=== PATIENT | male | born 1970 | race Two or more races ===

== ENCOUNTER 2018-12-18 10:20 | Emergency (ER) | payer SELFPAY ==
[2018-12-18] MEDS ORDERED: IV NORMAL SALINE 1,000ML 1,000 ML IV SCH (10:35)
--- NOTE | 2018-12-18 10:54 | PHYS DOC ---
Past History Past Medical History: Other Past Surgical History: Other Alcohol Use: None Drug Use: None Adult General Chief Complaint Chief Complaint: ABDOMINAL PAIN HPI HPI Patient is a 48 year old male who presents with complaint of epigastric pain that started last night. Patient states that the pain is sharp and constant. The patient notes that he has had similar pain in the past and was diagnosed with a common bile duct blockage at that time. He states he underwent endoscopy which helped to treat the blockage at that time. This was done in his [facility]. States that he has had belching but no vomiting, fever, or diarrhea associated with symptoms. Rates pain currently 5 out of 10. Has not taken any medications for symptoms. Denies radiation of pain. Review of Systems Review of Systems Constitutional: Denies fever or chills [] Eyes: Denies change in visual acuity, redness, or eye pain [] HENT: Denies nasal congestion or sore throat [] Respiratory: Denies cough or shortness of breath [] Cardiovascular: Denies chest pain or edema[] GI: Abdominal pain, belching, denies vomiting or diarrhea[] : Denies dysuria or hematuria [] Musculoskeletal: Denies back pain or joint pain [] Integument: Denies rash or skin lesions [] Neurologic: Denies headache, focal weakness or sensory changes [] All other systems were reviewed and found to be within normal limits, except as documented in this note. Current Medications Current Medications Current Medications Medications (Trade) Dose Ordered Sig/Dionisio Start Time Stop Time Status Last Admin Dose Admin Famotidine (Pepcid Vial) 20 mg 1X ONCE 12/18/18 11:00 12/18/18 11:01 12/18/18 10:50 20 MG Fentanyl Citrate (Fentanyl 2ml Vial) 50 mcg PRN Q15MIN PRN 12/18/18 11:00 12/19/18 10:59 12/18/18 10:50 50 MCG Ondansetron HCl (Zofran) 4 mg 1X ONCE 12/18/18 11:00 12/18/18 11:01 12/18/18 10:50 4 MG Sodium Chloride 1,000 ml @ 1,000 mls/hr Q1H 12/18/18 10:35 12/18/18 11:34 12/18/18 10:49 1,000 MLS/HR Allergies Allergies Allergies Coded Allergies Type Severity Reaction Last Updated Verified No Known Drug Allergies 12/18/18 No Physical Exam Physical Exam Constitutional: Alert, afebrile, no acute distress. [] HENT: Normocephalic, atraumatic, bilateral external ears normal, oropharynx moist, no oral exudates, nose normal. [] Eyes: PERRLA, EOMI, conjunctiva normal, no discharge. [] Neck: Normal range of motion, no tenderness, supple, no stridor. [] Cardiovascular:Heart rate regular rhythm, no murmur [] Lungs & Thorax: Bilateral breath sounds clear to auscultation [] Abdomen: Bowel sounds normal, soft, no tenderness, no masses, no pulsatile masses. [] Skin: Warm, dry, no erythema, no rash. [] Back: No tenderness, no CVA tenderness. [] Extremities: No tenderness, no cyanosis, no clubbing, ROM intact, no edema. [] Neurologic: Alert and oriented X 3, normal motor function, normal sensory function, no focal deficits noted. [] Current Patient Data Vital Signs Vital Signs Date Time Temp Pulse Resp B/P (MAP) Pulse Ox O2 Delivery O2 Flow Rate FiO2 12/18/18 10:50 18 98 Room Air 12/18/18 10:26 98.2 76 Lab Results Laboratory Tests Test 12/18/18 10:47 12/18/18 10:54 White Blood Count 9.7 x10^3/uL Red Blood Count 5.89 x10^6/uL Hemoglobin 17.2 g/dL Hematocrit 49.9 % Mean Corpuscular Volume 85 fL Mean Corpuscular Hemoglobin 29 pg Mean Corpuscular Hemoglobin Concent 35 g/dL Red Cell Distribution Width 13.2 % Platelet Count 260 x10^3/uL Neutrophils (%) (Auto) 60 % Lymphocytes (%) (Auto) 33 % Monocytes (%) (Auto) 6 % Eosinophils (%) (Auto) 1 % Basophils (%) (Auto) 1 % Neutrophils # (Auto) 5.8 x10^3uL Lymphocytes # (Auto) 3.2 x10^3/uL Monocytes # (Auto) 0.6 x10^3/uL Eosinophils # (Auto) 0.1 x10^3/uL Basophils # (Auto) 0.1 x10^3/uL Sodium Level 140 mmol/L Potassium Level 3.9 mmol/L Chloride Level 102 mmol/L Carbon Dioxide Level 29 mmol/L Anion Gap 9 Blood Urea Nitrogen 11 mg/dL Creatinine 1.2 mg/dL Estimated GFR (Cockcroft-Gault) 65.2 BUN/Creatinine Ratio 9 Glucose Level 92 mg/dL Calcium Level 8.6 mg/dL Total Bilirubin 0.6 mg/dL Aspartate Amino Transf (AST/SGOT) 29 U/L Alanine Aminotransferase (ALT/SGPT) 47 U/L Alkaline Phosphatase 78 U/L Total Protein 7.9 g/dL Albumin 4.0 g/dL Albumin/Globulin Ratio 1.0 Lipase < 10 U/L Urine Collection Type Unknown Urine Color Yellow Urine Clarity Clear Urine pH 5.5 Urine Specific [place] 1.020 Urine Protein Neg Urine Glucose (UA) Neg mg/dL Urine Ketones (Stick) Neg mg/dL Urine Blood Neg Urine Nitrite Neg Urine Bilirubin Neg Urine Urobilinogen Dipstick 0.2 mg/dL Urine Leukocyte Esterase Neg Urine RBC 0 /HPF Urine WBC 0 /HPF Urine Squamous Epithelial Cells None /LPF Urine Bacteria 0 /HPF Urine Mucus Slight /LPF Current Medications Medications (Trade) Dose Ordered Sig/Dionisio Route PRN Reason Start Time Stop Time Status Last Admin Dose Admin Fentanyl Citrate (Fentanyl 2ml Vial) 50 mcg PRN Q15MIN PRN IV PAIN GREATER THAN 3/10 12/18/18 11:00 12/19/18 10:59 12/18/18 10:50 Sodium Chloride 1,000 ml @ 1,000 mls/hr Q1H IV 12/18/18 10:35 12/18/18 11:35 DC 12/18/18 10:49 Ondansetron HCl (Zofran) 4 mg 1X ONCE IV 12/18/18 11:00 12/18/18 11:02 DC 12/18/18 10:50 Famotidine (Pepcid Vial) 20 mg 1X ONCE IVP 12/18/18 11:00 12/18/18 11:02 DC 12/18/18 10:50 EKG EKG Interpreted by me: Heart rate 81, sinus rhythm, J-point elevation in the precordial leads, no true ST elevations or depressions[] Radiology/Procedures Radiology/Procedures [address] [address] IMAGING REPORT Signed PATIENT: AVRIL SINGH ACCOUNT: [id number] : 1970 LOCATION: ER AGE: 48 SEX: M EXAM STATUS: PRE ER ORD. PHYSICIAN: EMILY AUGUSTIN MD REASON: epigastric pain, hx of common bile duct blockage 1.5 years ago PROCEDURE: ABDOMEN LTD Right upper quadrant abdominal ultrasound History: Epigastric pain. History of common bile duct blockage 1.5 years ago. Comparison: None. Technique: Transabdominal ultrasound images are obtained. Findings: Visualized pancreas is homogeneous. The pancreatic duct is mildly dilated measuring 3.6 mm. The liver is homogeneous, echogenicity is upper limits of normal. There is however no decreased through-transmission. Right hepatic lobe measures 14.4 cm. Portal flow is hepatopedal. Gallbladder sludge and tiny gallstones are suggested. There is no gallbladder wall thickening or pericholecystic fluid. Sonographic Zamora sign is negative. Common bile duct caliber is normal measuring 4 mm in diameter. The right kidney measures 11.4 cm in length and is without evidence of obstruction or stone. IVC is patent. IMPRESSION: 1. Gallbladder sludge. 2. The pancreatic duct is mildly dilated. Common bile duct is normal caliber. Electronically signed by: Harry Ruvalcaba MD (12/18/2018 11:50 AM) [id number] DICTATED AND SIGNED BY: HARRY RUVALCABA MD DATE: 12/18/18 1150 CC: EMILY AUGUSTIN MD ~ [] Course & Med Decision Making Course & Med Decision Making Pertinent Labs and Imaging studies reviewed. (See chart for details) Patient was given IV fluids, fentanyl, Pepcid, and Zofran in the emergency department. Reports improvement in pain symptoms. Ultrasound is negative. Patient's symptoms appear consistent with likely gastritis. We'll start patient on Carafate and Pepcid for treatment. Advised follow-up with primary doctor in 1 week for reevaluation and return to emergency department for any worsening symptoms. Patient was understanding and in agreement with treatment plan. Dragon Disclaimer Dragon Disclaimer This electronic medical record was generated, in whole or in part, using a voice recognition dictation system. Departure Departure: Impression: Primary Impression: Epigastric abdominal pain Disposition: 01 HOME, SELF-CARE Condition: IMPROVED Patient Instructions: Abdominal Pain (Nonspecific) Additional Instructions: Follow-up with your primary doctor in 1 week for reevaluation. Return to the emergency department for any worsening symptoms. Scripts Famotidine (PEPCID) 20 Mg Tablet 1 TAB PO BID, #30 TAB 0 Refills Prov: EMILY AUGUSTIN MD 12/18/18 Sucralfate (CARAFATE) 1 Gm Tablet 1 TAB PO QID, #120 TAB 0 Refills Prov: EMILY AUGUSTIN MD 12/18/18 EMILY AUGUSTIN MD Dec 18, 2018 10:54
[2018-12-18 10:59] LABS: BASO # 0.1 x10^3/uL (0.0-0.2); BASO % 1 % (0-3); EOS # 0.1 x10^3/uL (0.0-0.7); EOS % 1 % (0-3); HEMATOCRIT 49.9 % (39.0-53.0); HEMOGLOBIN 17.2 g/dL (13.0-17.5); LYMPH # 3.2 x10^3/uL (1.0-4.8); LYMPH % 33 % (24-48); MEAN CORPUSCULAR HEMOGLOBIN 29 pg (25-35); MEAN CORPUSCULAR HGB CONC 35 g/dL (31-37); MEAN CORPUSCULAR VOLUME 85 fL (79-100); MONO # 0.6 x10^3/uL (0.0-1.1); MONO % 6 % (0-9); NEUT # 5.8 x10^3uL (1.8-7.7); NEUT % 60 % (31-73); PLATELET COUNT 260 x10^3/uL (140-400); RED BLOOD COUNT 5.89 x10^6/uL (4.30-5.70); RED CELL DISTRIBUTION WIDTH 13.2 % (11.5-14.5); WHITE BLOOD COUNT 9.7 x10^3/uL (4.0-11.0)
[2018-12-18] MEDS ORDERED: ONDANSETRON PF 4 MG/2 ML VIAL. IV ONE (11:00)
[2018-12-18] MEDS ORDERED: FAMOTIDINE 20 MG/2 ML VIAL IVP ONE (11:00)
[2018-12-18 11:13] LABS: ALT (SGPT) 47 U/L (16-63); ANION GAP 9 (6-14); AST (SGOT) 29 U/L (15-37); BLOOD UREA NITROGEN 11 mg/dL (8-26); BUN/CREATININE RATIO 9 (6-20); CALCIUM 8.6 mg/dL (8.5-10.1); CARBON DIOXIDE 29 mmol/L (21-32); CHLORIDE 102 mmol/L (98-107); CREATININE 1.2 mg/dL (0.7-1.3); GFR 65.2; GLUCOSE 92 mg/dL (70-99); POTASSIUM 3.9 mmol/L (3.5-5.1); SODIUM 140 mmol/L (136-145); TOTAL BILIRUBIN 0.6 mg/dL (0.2-1.0); TOTAL PROTEIN 7.9 g/dL (6.4-8.2)
[2018-12-18 11:19] LABS: BACTERIA,URINE 0 /HPF (0-FEW); BILIRUBIN,URINE NEG (NEG); CLARITY,URINE CLEAR; COLOR,URINE YELLOW; GLUCOSE,URINE NEG (NEG); NITRITE,URINE NEG (NEG); RBC,URINE 0 /HPF (0-2); UROBILINOGEN,URINE 0.2 mg/dL (0.2 mg/dL); WBC,URINE 0 /HPF (0-4)
[2018-12-18 11:25] LABS: ALK PHOS 78 U/L (46-116)
[2018-12-18 11:26] LABS: LIPASE < 10 U/L (73-393)
[2018-12-18 11:40] VITALS: BP 136/73
--- NOTE | 2018-12-18 11:53 | RAD ---
Right upper quadrant abdominal ultrasound History: Epigastric pain. History of common bile duct blockage 1.5 years ago. Comparison: None. Technique: Transabdominal ultrasound images are obtained. Findings: Visualized pancreas is homogeneous. The pancreatic duct is mildly dilated measuring 3.6 mm. The liver is homogeneous, echogenicity is upper limits of normal. There is however no decreased through-transmission. Right hepatic lobe measures 14.4 cm. Portal flow is hepatopedal. Gallbladder sludge and tiny gallstones are suggested. There is no gallbladder wall thickening or pericholecystic fluid. Sonographic Zamora sign is negative. Common bile duct caliber is normal measuring 4 mm in diameter. The right kidney measures 11.4 cm in length and is without evidence of obstruction or stone. IVC is patent. IMPRESSION: 1. Gallbladder sludge. 2. The pancreatic duct is mildly dilated. Common bile duct is normal caliber. Electronically signed by: Harry Ruvalcaba MD (12/18/2018 11:50 AM) [id number]
[2018-12-18] MEDS ORDERED: SUCR1TAB35 PO (12:39)
[2018-12-18] MEDS ORDERED: FAMO-63 PO (12:39)
--- NOTE | 2018-12-19 17:04 | EKG ---
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 Electronically Signed On 12-23-2018 12:08:48 CDT by David Crenshaw
== END 2018-12-18 12:56 | disposition home or self-care (01) ==
LOC: ER 10:20
DX: R10.13 Epigastric pain (principal); K80.20 Calculus of gallbladder without cholecystitis without obstruction
CPT/HCPCS: 36415; 76705; 80053; 81001; 83690; 85025; 93005; 96374; 96375; 99285; J2405; J3010; J3490; J7030

== ENCOUNTER 2018-12-22 17:55 | Emergency (ER) | payer OTHER ==
[~2018-12-22 17:55] MED LIST: FAMO-63 PO; SUCR1TAB35 PO
[2018-12-22] MEDS ORDERED: IV NORMAL SALINE 1,000ML 1,000 ML IV ONE (18:30)
[2018-12-22] MEDS ORDERED: FAMOTIDINE 20 MG/2 ML VIAL IVP ONE (18:45)
[2018-12-22] MEDS ORDERED: IOHEXOL 300 MG/ML 75 ML VIAL. IV ONE (18:45)
[2018-12-22] MEDS ORDERED: KETOROLAC 15 MG/ML VIAL. IV ONE (18:45)
[2018-12-22] MEDS ORDERED: ONDANSETRON PF 4 MG/2 ML VIAL. IV ONE (18:45)
[2018-12-22 19:13] LABS: BASO # 0.1 x10^3/uL (0.0-0.2); BASO % 1 % (0-3); EOS # 0.1 x10^3/uL (0.0-0.7); EOS % 1 % (0-3); HEMATOCRIT 50.5 % (39.0-53.0); HEMOGLOBIN 17.3 g/dL (13.0-17.5); LYMPH # 3.4 x10^3/uL (1.0-4.8); LYMPH % 37 % (24-48); MEAN CORPUSCULAR HEMOGLOBIN 29 pg (25-35); MEAN CORPUSCULAR HGB CONC 34 g/dL (31-37); MEAN CORPUSCULAR VOLUME 85 fL (79-100); MONO # 0.6 x10^3/uL (0.0-1.1); MONO % 6 % (0-9); NEUT # 5.2 x10^3uL (1.8-7.7); NEUT % 56 % (31-73); PLATELET COUNT 276 x10^3/uL (140-400); RED BLOOD COUNT 5.93 x10^6/uL (4.30-5.70); RED CELL DISTRIBUTION WIDTH 13.2 % (11.5-14.5); WHITE BLOOD COUNT 9.3 x10^3/uL (4.0-11.0)
--- NOTE | 2018-12-22 19:17 | PHYS DOC ---
Past History Past Medical History: No Pertinent History Past Surgical History: Other Past Surgical History Sphincterotomy 2018 in [place] Smoking: Non-smoker Alcohol Use: None Drug Use: None Adult General Chief Complaint Chief Complaint: ABDOMINAL PAIN HPI HPI Patient is a 48 year old M who presents with sharp intermittent abdominal pain that began last . He was seen at the [facility] ED on Friday where RUQ ultrasound showed evidence of biliary sludge without pericholecystic fluid or gallbladder wall thickening. He was discharged home at that with famotidine and sucralfate. Since that time, his pain has not abated and pt has been unable to sleep due to pain. Pain has been intermittent and worsened by food. Laying on left side provides minor relief of pain. Pt has been able to maintain adequate PO intake. Denies nausea, vomiting, diarrhea, or fevers at this time. Denies known trauma. Patient dose have a history of prior sphincterotomy was performed in [place] [facility] in 2018. Review of Systems Review of Systems Constitutional: Denies fever or chills [] HENT: Denies nasal congestion or sore throat [] Respiratory: Denies cough or shortness of breath [] Cardiovascular: Denies chest pain or palpitations GI: Reports abdominal pain, nausea, and constipation; denies vomiting or diarrhea : Denies dysuria or hematuria [] Musculoskeletal: Denies back pain or joint pain [] Integument: Denies rash or skin lesions [] Neurologic: Denies headache, focal weakness or sensory changes [] Complete systems were reviewed and found to be within normal limits, except as documented in this note. Current Medications Current Medications Current Medications Medications (Trade) Dose Ordered Sig/Dionisio Start Time Stop Time Status Last Admin Dose Admin Famotidine (Pepcid Vial) 20 mg 1X ONCE 12/22/18 18:45 12/22/18 18:46 DC Iohexol (Omnipaque 300 Mg/ml) 75 ml 1X ONCE 12/22/18 18:45 12/22/18 18:46 DC Ketorolac Tromethamine (Toradol 15mg Vial) 15 mg 1X ONCE 12/22/18 18:45 12/22/18 18:46 DC Ondansetron HCl (Zofran) 4 mg 1X ONCE 12/22/18 18:45 12/22/18 18:46 DC Sodium Chloride 1,000 ml @ 1,000 mls/hr 1X ONCE 12/22/18 18:30 12/22/18 19:29 Allergies Allergies Allergies Coded Allergies Type Severity Reaction Last Updated Verified No Known Drug Allergies 12/18/18 No Physical Exam Physical Exam Constitutional: Well developed, well nourished, no acute distress, non-toxic appearance. [] HENT: Normocephalic, atraumatic, oropharynx moist Eyes: Conjunctiva normal, no discharge. [] Neck: Normal range of motion, no tenderness, supple Cardiovascular: Heart rate regular rhythm Lungs & Thorax: Bilateral breath sounds clear to auscultation [] Abdomen: Soft, RUQ mild tenderness to palpation, no rebound tenderness, no voluntary guarding, no Zmaora's sign, no McBurney's point tenderness Skin: Warm, dry, no erythema, no rash. [] Back: No tenderness, no CVA tenderness. [] Extremities: No tenderness, ROM intact, no edema. [] Neurologic: Alert and oriented X 3, no focal deficits noted. [] Psychologic: Affect normal, judgement normal Current Patient Data Vital Signs Vital Signs Date Time Temp Pulse Resp B/P (MAP) Pulse Ox O2 Delivery O2 Flow Rate FiO2 12/22/18 18:12 98.1 78 20 98 Room Air EKG EKG @1840 NSR at 80bpm, NO ST elevation, some prominent j point at V2-V6, Q wave in III Radiology/Procedures Radiology/Procedures PROCEDURE: CT ABD PELV W/ IV CONTRST ONLY PQRS Compliance Statement: One or more of the following individualized dose reduction techniques were utilized for this examination: 1. Automated exposure control 2. Adjustment of the mA and/or kV according to patient size 3. Use of iterative reconstruction technique CT abdomen/pelvis with contrast 12/22/2018 6:45 PM INDICATION: Epigastric and right upper quadrant abdominal pain. Gallbladder sludge and mild dilated pancreatic duct. COMPARISON: Limited ultrasound abdomen December 18, 2018 TECHNIQUE: Multiple axial CT images of the abdomen and pelvis were obtained after the intravenous administration of 75 mL Omnipaque 300. Coronal and sagittal reformats are provided. FINDINGS: Lung bases are clear. Heart size within normal limits. Liver enhances homogeneously. There is mild hepatic steatosis. No suspicious hepatic masses identified. There is mild pneumobilia. Spleen is not enlarged. Adrenal glands are normal in appearance. No peripancreatic plantar changes are identified. No significant dilatation of main pancreatic duct. No suspicious pancreatic mass is visualized. Gallbladder is present with small focus of gas. No significant wall thickening or pericholecystic inflammatory changes. The abdominal aorta is normal in course and caliber. There are no pathologically enlarged lymph nodes in the abdomen and pelvis. There is no abdominal free fluid. There is no free intraperitoneal air. The kidneys enhance symmetrically. There is no suspicious renal mass. There is no hydronephrosis. There are no suspected calculi within the kidneys, ureters or urinary bladder. Small and large bowel are normal in caliber. There is no evidence for bowel obstruction. There are no pericolonic inflammatory changes. Appendix is not definitively visualized. No pericecal inflammatory changes are identified. The urinary bladder is within normal limits given degree of distention. Prostate and seminal vesicles are normal in appearance. No suspicious pelvic masses are identified. There are no suspicious osseous lesions identified. IMPRESSION: 1. Mild pneumobilia. Correlate with recent sphincterotomy. Pancreatic duct is not dilated by CT. 2. No pericholecystic inflammatory changes are identified. 3. Mild hepatic steatosis. 4. Appendix is not visualized. Electronically signed by: Tamara Lomeli MD (12/22/2018 7:32 PM) [facility] Course & Med Decision Making Course & Med Decision Making Pertinent Labs and Imaging studies reviewed. (See chart for details) Patient presents with right upper quadrant/epigastric abdominal pain which is been ongoing for the last 5 days. Patient was seen recently in the ER at [facility] with ultrasound findings consistent for biliary sludge. Patient does have a history of sphincterotomy which was performed in [place]. Patient was sent home with prescription for Pepcid and Carafate. Patient reports continuation of pain. Labs obtained and posted to chart. LFT and lipase within n ormal limits. Troponin within normal limits. EKG without acute finding. CT abdomen/pelvis obtained without acute finding. There is notation of a pneumobilia. Likely secondary to known sphincterotomy. Symptomatic treatment provided with interval improvement of symptoms. IV fluid hydration provided. Patient stable for discharge with outpatient follow-up with PCP/GI specialist/g eneral surgeon. GI and general surgery referrals provided. Discussed findings and plan with patient and family, who acknowledge understanding and agreement. Dragon Disclaimer Dragon Disclaimer This electronic medical record was generated, in whole or in part, using a voice recognition dictation system. Departure Departure: Impression: Primary Impression: Abdominal pain Additional Impression: Biliary colic Disposition: 01 HOME, SELF-CARE Condition: STABLE Referrals: PCP,SHOBHA (PCP) JCARLOS WOODRUFF MD, THOMAS W MD Patient Instructions: Abdominal Pain (Nonspecific), Biliary Colic Scripts Lactobacillus Acidophilus (PROBIOTIC) 1 Each Capsule 1 EACH PO DAILY for GI health, #30 CAP Prov: BART MEDELLIN DO 12/22/18 Sennosides/Docusate Sodium (Colace 2-in-1 Tablet) 1 Each Tablet 1 EACH PO QHS for Constipation, #30 TAB Prov: BART MEDELLIN DO 12/22/18 Ondansetron (ONDANSETRON ODT) 4 Mg Tab.rapdis 1 TAB PO PRN Q6-8HRS for NAUSEA, #16 TAB Prov: BART MEDELLIN DO 12/22/18 Hydrocodone Bit/Acetaminophen (NORCO 5-325 TABLET) 1 Each Tablet 0.5-1 TAB PO Q6HRS for PAIN, #10 TAB Prov: BART MEDELLIN DO 12/22/18 Problem Qualifiers Primary Impression: Abdominal pain Abdominal location: epigastric Qualified Codes: R10.13 - Epigastric pain BART MEDELLIN DO Dec 22, 2018 19:17
[2018-12-22 19:19] LABS: BACTERIA,URINE 0 /HPF (0-FEW); BILIRUBIN,URINE NEG (NEG); CLARITY,URINE CLEAR; COLOR,URINE STRAW; GLUCOSE,URINE NEG (NEG); NITRITE,URINE NEG (NEG); RBC,URINE 0 /HPF (0-2); SQUAMOUS EPITHELIAL CELL,UR OCC /LPF; UROBILINOGEN,URINE 0.2 mg/dL (0.2 mg/dL); WBC,URINE 0 /HPF (0-4)
--- NOTE | 2018-12-22 19:34 | RAD ---
PQRS Compliance Statement: One or more of the following individualized dose reduction techniques were utilized for this examination: 1. Automated exposure control 2. Adjustment of the mA and/or kV according to patient size 3. Use of iterative reconstruction technique CT abdomen/pelvis with contrast 12/22/2018 6:45 PM INDICATION: Epigastric and right upper quadrant abdominal pain. Gallbladder sludge and mild dilated pancreatic duct. COMPARISON: Limited ultrasound abdomen December 18, 2018 TECHNIQUE: Multiple axial CT images of the abdomen and pelvis were obtained after the intravenous administration of 75 mL Omnipaque 300. Coronal and sagittal reformats are provided. FINDINGS: Lung bases are clear. Heart size within normal limits. Liver enhances homogeneously. There is mild hepatic steatosis. No suspicious hepatic masses identified. There is mild pneumobilia. Spleen is not enlarged. Adrenal glands are normal in appearance. No peripancreatic plantar changes are identified. No significant dilatation of main pancreatic duct. No suspicious pancreatic mass is visualized. Gallbladder is present with small focus of gas. No significant wall thickening or pericholecystic inflammatory changes. The abdominal aorta is normal in course and caliber. There are no pathologically enlarged lymph nodes in the abdomen and pelvis. There is no abdominal free fluid. There is no free intraperitoneal air. The kidneys enhance symmetrically. There is no suspicious renal mass. There is no hydronephrosis. There are no suspected calculi within the kidneys, ureters or urinary bladder. Small and large bowel are normal in caliber. There is no evidence for bowel obstruction. There are no pericolonic inflammatory changes. Appendix is not definitively visualized. No pericecal inflammatory changes are identified. The urinary bladder is within normal limits given degree of distention. Prostate and seminal vesicles are normal in appearance. No suspicious pelvic masses are identified. There are no suspicious osseous lesions identified. IMPRESSION: 1. Mild pneumobilia. Correlate with recent sphincterotomy. Pancreatic duct is not dilated by CT. 2. No pericholecystic inflammatory changes are identified. 3. Mild hepatic steatosis. 4. Appendix is not visualized. Electronically signed by: Tamara Lomeli MD (12/22/2018 7:32 PM) [facility]
[2018-12-22 19:37] LABS: ALBUMIN 4.2 g/dL (3.4-5.0); CALCIUM 8.8 mg/dL (8.5-10.1); CREATININE 1.3 mg/dL (0.7-1.3); GFR 59.4; MAGNESIUM 2.1 mg/dL (1.8-2.4); POTASSIUM 3.3 mmol/L (3.5-5.1); TOTAL BILIRUBIN 0.5 mg/dL (0.2-1.0); TOTAL PROTEIN 8.3 g/dL (6.4-8.2)
[2018-12-22] MEDS ORDERED: HYDR-3165 PO (20:07)
[2018-12-22] MEDS ORDERED: ONDA4TAB12 PO (20:07)
[2018-12-22] MEDS ORDERED: LACT1CAP6 PO (20:47)
[2018-12-22] MEDS ORDERED: SENN-121 PO (20:47)
[2018-12-22 21:00] VITALS: BP 123/74
--- NOTE | 2018-12-22 21:11 | EKG ---
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
== END 2018-12-22 21:15 | disposition home or self-care (01) ==
LOC: ER 17:55
DX: K80.50 Calculus of bile duct without cholangitis or cholecystitis without obstruction (principal); K76.0 Fatty (change of) liver, not elsewhere classified; Z98.890 Other specified postprocedural states
CPT/HCPCS: 36415; 74177; 80053; 81001; 82553; 83690; 83735; 84484; 85025; 85610; 85730; 93005; 96374; 96375; 99285; J1885; J2405; J3490; Q9967; J7030